=== PATIENT | male | born 1950 | race Caucasian/White ===

== ENCOUNTER 2017-07-04 09:51 | Day surgery (SDC) | payer MEDICARE, MEDICAID ==
[2017-06-30 11:41] LABS: APPEARANCE,URINE SLIGHTLY-CLOUDY; BILIRUBIN,URINE NEGATIVE (NEGATIVE); GLUCOSE, URINE NEGATIVE (NEGATIVE); KETONES,URINE NEGATIVE (NEGATIVE); LEUKOCYTE ESTERASE,URINE NEGATIVE (NEGATIVE); NITRITE,URINE NEGATIVE (NEGATIVE); PROTEIN,URINE NEGATIVE (NEGATIVE); URINE SPECIFIC GRAVITY 1.019; UROBILINOGEN,URINE NEGATIVE mg/dL (<2.0)
[2017-06-30 11:42] LABS: ABSOLUTE BASOPHILS # (AUTO) 0.1 10^3/uL (0.0-0.2); ABSOLUTE EOSINOPHILS # (AUTO) 0.2 10^3/uL (0.0-0.6); ABSOLUTE LYMPHOCYTES (AUTO) 1.4 10^3/uL (0.5-4.7); ABSOLUTE MONOCYTES (AUTO) 0.6 10^3/uL (0.1-1.4); ABSOLUTE NEUT (AUTO) 2.9 10^3/uL (1.7-8.2); BASOPHILS % (AUTO) 1.2 % (0-2); EOSINOPHILS % (AUTO) 4.1 % (0-6); HEMATOCRIT 40.3 % (37.9-51.0); HEMOGLOBIN 13.6 g/dL (13.5-17.0); HGB HCT DIFFERENCE 0.5; LYMPHOCYTES % (AUTO) 27.5 % (13-45); MEAN CORPUSCULAR HEMOGLOBIN 30.2 pg (27.0-33.4); MEAN CORPUSCULAR HGB CONC 33.7 g/dL (32.0-36.0); MEAN CORPUSCULAR VOLUME 90 fl (80-97); MONOCYTES % (AUTO) 11.3 % (3-13); RED BLOOD COUNT 4.49 10^6/uL (4.35-5.55); RED CELL DISTRIBUTION WIDTH 14.8 % (11.5-14.0); SEGMENTED NEUTROPHILS % (AUTO) 55.9 % (42-78); WHITE BLOOD COUNT 5.1 10^3/uL (4.0-10.5)
[2017-06-30 12:01] LABS: PROTHROMBIN TIME 12.8 SEC (11.4-15.4)
[2017-06-30 12:02] LABS: PARTIAL THROMBOPLASTIN TIME 29.2 SEC (23.5-35.8)
--- NOTE | 2017-06-30 17:15 | EKG REPORT ---
SEVERITY:- ABNORMAL ECG - SINUS RHYTHM FIRST DEGREE AV BLOCK : Confirmed by: Karol Clay 30-Jun-2017 17:15:05
[~2017-07-04 09:51] MED LIST: CEFAZOLIN 1 GM/D5W RTU 1 GM/50 ML RTUPB IV PRN; LACTATED RINGERS 1000 ML IV PRN; LIDOCAINE 0.5% INJ-PF (5 MG/ML) 50 ML SDV SUBCUT PRN; TRIAMCINOLONE ACETONIDE INJ 40 MG/1 ML VIAL INJ PRN
[2017-07-04] MEDS ORDERED: LIDOCAINE 1% INJ-PF (10 MG/ML) 30 ML SDV ONE (10:24)
[2017-07-04 10:50] LABS: PROTHROMBIN TIME 13.3 SEC (11.4-15.4)
[2017-07-04 10:51] LABS: PARTIAL THROMBOPLASTIN TIME 32.1 SEC (23.5-35.8)
[2017-07-04] MEDS ORDERED: BUPIVACAINE HCL 0.25% /EPINEPHRINE INJ/PF 30 ML SDV ONE (12:22)
[2017-07-04] MEDS ORDERED: MIDAZOLAM 2 MG/2 ML INJ ONE (12:50)
[2017-07-04] MEDS ORDERED: PROPOFOL INJ 200 MG/20 ML VIAL IV ONE (12:51)
[2017-07-04] MEDS ORDERED: TRIAMCINOLONE ACETONIDE INJ 40 MG/1 ML VIAL ONE ×2 (13:04→13:05)
[2017-07-04] MEDS ORDERED: MEPERIDINE HCL/PF INJ 25 MG/1 ML DISP.SYRIN IV PRN (13:25)
[2017-07-04] MEDS ORDERED: FENTANYL CITRATE INJ/PF 100 MCG/2 ML AMPUL IV PRN ×3 (13:25)
[2017-07-04] MEDS ORDERED: MORPHINE SULFATE 10 MG/ML INJ IV PRN (13:25)
[2017-07-04] MEDS ORDERED: PROMETHAZINE HCL INJ 25 MG/1 ML VIAL IV PRN ×2 (13:25)
[2017-07-04] MEDS ORDERED: DIPHENHYDRAMINE HCL 50 MG/ML VIAL IV PRN (13:25)
[2017-07-04] MEDS ORDERED: OXYCODONE-ACETAMINOPHEN 5-325 MG TABLET PO PRN ×2 (13:25)
--- NOTE | 2017-07-04 15:18 | RADIOLOGY REPORT (SQ) ---
EXAM DESCRIPTION: NO CHG FLUORO; L SPINE 2 VIEWS COMPLETED DATE/TIME: 07/04/2017 2:30 pm REASON FOR STUDY: MINIMALLY INVASIVE LUMBAR DECOMPRESSION ASSISTED W/ FLUORO IN OR G89.4 CHRONIC P AIN SYNDROME Z79.899 OTHER CORRECTION (CURRENT) DRUG THERAPY Z79.01 CORRECTION (CURRENT) USE OF ANTIC OAGULANTS COMPARISON: None. FLUOROSCOPY TIME: 7.3 minutes. 14 images saved to PACS. TECHNIQUE: Intra-operative images acquired during surgical procedure to evaluate progress. NUMBER OF IMAGES: 14 images. LIMITATIONS: None. FINDINGS: Images of the spine acquired during injection therapy. IMPRESSION: IMAGE(S) OBTAINED DURING PROCEDURE. COMMENT: Quality ID 145: Final reports for procedures using fluoroscopy that document radiation exp osure indices, or exposure time and number of fluorographic images (if radiation exposure indices are not available) Please consult full operative report of the attending physician for description of the procedure. TECHNICAL DOCUMENTATION: JOB ID: [id number] [employer]- All Rights Reserved
--- NOTE | 2017-07-04 15:18 | RADIOLOGY REPORT (SQ) ---
EXAM DESCRIPTION: NO CHG FLUORO; L SPINE 2 VIEWS COMPLETED DATE/TIME: 07/04/2017 2:30 pm REASON FOR STUDY: MINIMALLY INVASIVE LUMBAR DECOMPRESSION ASSISTED W/ FLUORO IN OR G89.4 CHRONIC P AIN SYNDROME Z79.899 OTHER USP (CURRENT) DRUG THERAPY Z79.01 USP (CURRENT) USE OF ANTIC OAGULANTS COMPARISON: None. FLUOROSCOPY TIME: 7.3 minutes. 14 images saved to PACS. TECHNIQUE: Intra-operative images acquired during surgical procedure to evaluate progress. NUMBER OF IMAGES: 14 images. LIMITATIONS: None. FINDINGS: Images of the spine acquired during injection therapy. IMPRESSION: IMAGE(S) OBTAINED DURING PROCEDURE. COMMENT: Quality ID 145: Final reports for procedures using fluoroscopy that document radiation exp osure indices, or exposure time and number of fluorographic images (if radiation exposure indices are not available) Please consult full operative report of the attending physician for description of the procedure. TECHNICAL DOCUMENTATION: JOB ID: [id number] [employer]- All Rights Reserved
[2017-07-04 15:37] VITALS: BP 128/78
--- NOTE | 2017-07-04 15:38 | OPERATIVE REPORT E ---
Operative Report NAME: KYRIE COOK : 1950 AGE: 67Y DATE OF SURGERY: 07/04/2017 ROOM: PREOPERATIVE DIAGNOSIS: Lumbar spine stenosis with neurogenic claudication. POSTOPERATIVE DIAGNOSIS: Lumbar spine stenosis with neurogenic claudication. OPERATION: 1. Minimally invasive lumbar decompression at the L4-5 level bilaterally. 2. Lumbar intralaminar epidural steroid injection at L4-5 with 80 mg of Kenalog. SURGEONS: ISMAEL MAURER M.D. and ALIN HAWKINS M.D. FLUIDS: 500 mL of normal saline. ANESTHESIA: PREOPERATIVE ANTIBIOTICS: 1 g of Ancef given. TISSUE REMOVED OR ALTERED: Segment of interspinous ligament and ligamentum flavum removed. None were sent to Pathology. OPERATIVE FINDINGS: Improved epidurographic spread of contrast following decompression. COMPLICATIONS: None. ESTIMATED BLOOD LOSS: Minimal. OPERATIVE INDICATIONS: The patient is a 67-year-old male with a history of lumbar spinal stenosis and neurogenic claudication with good results though short-lived epidural steroid injection. Given symptomatology, the patient was determined to be a good candidate for minimally invasive lumbar decompression surgery. The risks and benefits were discussed with the patient, including but not limited to, bleeding, bruising, infection, injury to nerves, arteries, veins, post dural puncture headache, loss of bowel or bladder function, paralysis, and potentially even . The patient agreed to proceed to the operating room. OPERATIVE DETAIL: The patient was accompanied to the operative suite with by Anesthesia staff. The patient was positioned in the prone position and all pressure points were checked and padded. Standard ASA lines and monitors were applied. A timeout protocol was performed as per [facility] standards. The patient was prepped and draped in sterile fashion using chlorhexidine gluconate solution, an Ioban drape and universal drape. A C-arm was also draped into the field. The L4-5 interspace was marked using AP fluoroscopic guidance and anesthetized with 1% lidocaine and a 1-1/2 inch needle. An 18-gauge Tuohy was advanced under intermittent AP and oblique fluoroscopic guidance and a slight left paramedian approach to the L4-5 interspace. Loss of resistance to normal saline confirmed entry into the epidural space. Confirmation was performed with Isovue 200 contrast solution, total volume 10mL utilized. This demonstrated spread in the posterior epidural space. At this juncture, vertical lines were drawn from in the midline of the spine, and just medial to the vertebral pedicles bilaterally. Incision sites were marked just lateral to the midline at the S1 level. The skin overlying the planned incision sites was anesthetized with 1% lidocaine, and deeper tissues were infiltrated with the same using a 25 gauge 3.5 inch spinal needle. An incision was made with an 11 blade scalpel and subsequently the trocar provided in the MILD kit was advanced using intermittent AP and oblique angulation fluoroscopic guidance to the L4-5 interspace just posterior to the epidural space. A mount was placed around the trocar and a depth gauge set at 15 mm. A bone rongeur was advanced through the trocar after anesthesia with 1% lidocaine was infiltrated through the trocar. The bone rongeur initially was utilized to scrape ligament and some bone from the superior aspect of the inferior lamina. Care was taken to keep rongeur posterior to the epidural space. Subsequently attention was then turned to the inferior aspect of the superior lamina where the procedure was performed in the exact same fashion with excellent removal of soft tissue noted. The tissue sculptor was then inserted through the trocar after bone rongeur was removed and further ligament removal was performed, with some appreciated improvement and spread of the epidurogram. The procedure was performed in the exact same fashion on the opposite side, with again improvement noted in epidural spread. At the end of the procedure the trocars were removed, the skin cleansed and bandages were applied. Additionally 80 mg of Kenalog was injected through the Tuohy needle in the epidural space at L4-5, and the needle was removed without incident. Bandages were placed. The patient tolerated the procedure well and was accompanied to the PACU in stable condition. He will be followed up tomorrow as an outpatient. DICTATING PHYSICIAN: ISMAEL MAURER M.D. [id number] PHY#: [id number] ID: [id number] JOB#: [id number] ACCT: [id number] cc:ISMAEL MUARER M.D. > MTDD
== END 2017-07-04 15:41 | disposition home or self-care (01) ==
LOC: OROUT 09:51
PROVIDERS: ATTEND Pain Medicine Interventional Pain Medicine
PROC: 00NY0ZZ Release Lumbar Spinal Cord, Open Approach (ICD-10-PCS; principal; 2017-07-04 12:00)
DX: M48.06 Spinal stenosis, lumbar region (principal); G89.4 Chronic pain syndrome; I10 Essential (primary) hypertension; G47.33 Obstructive sleep apnea (adult) (pediatric); I25.2 Old myocardial infarction; M19.90 Unspecified osteoarthritis, unspecified site; E11.9 Type 2 diabetes mellitus without complications; F17.210 Nicotine dependence, cigarettes, uncomplicated; E78.5 Hyperlipidemia, unspecified; F41.9 Anxiety disorder, unspecified; Z79.01 Long term (current) use of anticoagulants; Z79.899 Other long term (current) drug therapy; Z79.84 Long term (current) use of oral hypoglycemic drugs
CPT/HCPCS: 93005; 36415 ×2; 82962; 85025; 85610 ×2; 85730 ×2; 81001; 72100; 93010; 0275T; Q9966; J2250; J3490 ×3; J0690; J2704; 630

== ENCOUNTER → 2018-01-22 | Outpatient (CLI) | payer MEDICAID, MEDICARE ==
--- NOTE | 2018-01-22 13:37 | RADIOLOGY REPORT (SQ) ---
EXAM DESCRIPTION: U/S SCROTUM W/O DOPPLER COMPLETED DATE/TIME: 01/22/2018 12:17 pm REASON FOR STUDY: LEFT TESTICULAR PAIN (N50.812) N50.812 LEFT TESTICULAR PAIN COMPARISON: None. TECHNIQUE: Static and realtime hendrickson scale imaging of the scrotum and testes. Selected color Doppler and spectral images recorded to document blood flow. LIMITATIONS: None. FINDINGS: RIGHT: TESTICLE: Normal size, 4.4 x 3.1 x 2.3 cm in size. Normal echotexture. Normal blood flow. No mass. EPIDIDYMIS: Normal, 5 mm right epididymal cyst. HYDROCELE OR VARICOCELE: No. HERNIA OR EXTRA-TESTICULAR MASS: No. OTHER: No other significant finding. LEFT: TESTICLE: Normal size, 4.8 x 2.9 x 2.7 cm in size. Normal echotexture. Normal blood flow. No mass. EPIDIDYMIS: Normal. HYDROCELE OR VARICOCELE: Large hydrocele left hemiscrotum at least 11 x 7 cm in size. HERNIA OR EXTRA-TESTICULAR MASS: No. OTHER: No other significant finding. IMPRESSION: No ultrasound evidence of testicular torsion. No testicular primary nodules. Large left hydrocele in the hemiscrotum TECHNICAL DOCUMENTATION: JOB ID: [id number] [employer]- All Rights Reserved Reading location - IP/workstation name: [email or web address]
== END ==
LOC: RAD 10:13
PROVIDERS: ATTEND Physician Assistant
DX: N50.812 Left testicular pain (principal); N43.3 Hydrocele, unspecified
CPT/HCPCS: 76870

== ENCOUNTER 2019-07-02 05:41 | Day surgery (SDC) | payer MEDICARE, MEDICAID ==
[2019-06-25 09:42] LABS: APPEARANCE,URINE CLEAR; BILIRUBIN,URINE NEGATIVE (NEGATIVE); COLOR,URINE YELLOW; GLUCOSE, URINE NEGATIVE (NEGATIVE); KETONES,URINE NEGATIVE (NEGATIVE); LEUKOCYTE ESTERASE,URINE NEGATIVE (NEGATIVE); NITRITE,URINE NEGATIVE (NEGATIVE); PROTEIN,URINE NEGATIVE (NEGATIVE); URINE SPECIFIC GRAVITY 1.023; UROBILINOGEN,URINE NEGATIVE mg/dL (<2.0)
[2019-06-25 09:49] LABS: HEMATOCRIT 37.7 % (37.9-51.0); HEMOGLOBIN 12.8 g/dL (13.5-17.0); MEAN CORPUSCULAR HEMOGLOBIN 29.9 pg (27.0-33.4); MEAN CORPUSCULAR HGB CONC 33.9 g/dL (32.0-36.0); MEAN CORPUSCULAR VOLUME 88 fl (80-97); PLATELET COUNT 163 10^3/uL (150-450); RED BLOOD COUNT 4.28 10^6/uL (4.35-5.55); RED CELL DISTRIBUTION WIDTH 15.3 % (11.5-14.0); WHITE BLOOD COUNT 5.1 10^3/uL (4.0-10.5)
[2019-06-25 09:57] LABS: INTERNATIONAL RATION (INR) 1.03; PROTHROMBIN TIME 13.5 SEC (11.4-15.4)
[2019-06-25 09:58] LABS: PARTIAL THROMBOPLASTIN TIME 30.8 SEC (23.5-35.8)
--- NOTE | 2019-06-25 10:11 | RADIOLOGY REPORT (SQ) ---
EXAM DESCRIPTION: CHEST PA/LATERAL COMPLETED DATE/TIME: 06/25/2019 9:39 am REASON FOR STUDY: PRE-OP COMPARISON: 08/20/2015 EXAM PARAMETERS: NUMBER OF VIEWS: two views TECHNIQUE: Digital Frontal and Lateral radiographic views of the chest acquired. RADIATION DOSE: NA LIMITATIONS: none FINDINGS: LUNGS AND PLEURA: No opacities, masses or pneumothorax. No pleural effusion. MEDIASTINUM AND HILAR STRUCTURES: No masses or contour abnormalities. HEART AND VASCULAR STRUCTURES: Heart normal size. No evidence for failure. BONES: No acute findings. HARDWARE: Sternotomy wires are in place. OTHER: No other significant finding. IMPRESSION: NO SIGNIFICANT RADIOGRAPHIC FINDING IN THE CHEST. TECHNICAL DOCUMENTATION: JOB ID: [id number] [employer]- All Rights Reserved Reading location - IP/workstation name: [email or web address]
--- NOTE | 2019-06-25 20:55 | EKG REPORT ---
SEVERITY:- ABNORMAL ECG - SINUS RHYTHM VENTRICULAR PREMATURE COMPLEX FIRST DEGREE AV BLOCK : Confirmed by: Mary Luna MD 25-Jun-2019 20:54:02
[~2019-07-02 05:41] MED LIST changes: +CEFAZOLIN 1 GM/D5W RTU 1 GM/50 ML RTUPB IV ONE; -TRIAMCINOLONE ACETONIDE INJ 40 MG/1 ML VIAL INJ PRN
[2019-07-02] MEDS ORDERED: METOPROLOL SUCCINATE 50 MG TAB.SR.24H PO ONE ×2 (06:29→06:36)
[2019-07-02] MEDS ORDERED: FENTANYL CITRATE INJ/PF 100 MCG/2 ML AMPUL ONE ×2 (06:39→09:55)
[2019-07-02] MEDS ORDERED: MIDAZOLAM 2 MG/2 ML INJ ONE (06:40)
[2019-07-02] MEDS ORDERED: PROPOFOL INJ 200 MG/20 ML VIAL IV ONE (06:40)
[2019-07-02] MEDS ORDERED: LIDOCAINE 2% INJ (20 MG/ML) 20 ML MDV ONE (06:42)
[2019-07-02] MEDS ORDERED: LIDOCAINE 1% INJ-PF (10 MG/ML) 30 ML SDV ONE (07:44)
[2019-07-02] MEDS ORDERED: SODIUM BICARBONATE 4.2% INJ (2.5 MEQ/5 ML) VIAL ONE (07:44)
[2019-07-02] MEDS ORDERED: BUPIVACAINE HCL 0.25% /EPINEPHRINE INJ/PF 30 ML SDV ONE (07:44)
[2019-07-02] MEDS ORDERED: BUPIVACAINE HCL 0.5%-EPI 1:200000 INJ/PF 30 ML VIAL INJ ONE ×2 (08:15)
[2019-07-02] MEDS ORDERED: MEPERIDINE HCL/PF INJ 25 MG/1 ML DISP.SYRIN IV PRN (08:37)
[2019-07-02] MEDS ORDERED: DIPHENHYDRAMINE HCL 50 MG/ML VIAL IV PRN (08:37)
[2019-07-02] MEDS ORDERED: PROMETHAZINE HCL INJ 25 MG/1 ML VIAL IV PRN ×2 (08:37)
[2019-07-02] MEDS ORDERED: OXYCODONE-ACETAMINOPHEN 5-325 MG TABLET PO PRN ×2 (08:37)
[2019-07-02] MEDS ORDERED: FENTANYL CITRATE INJ/PF 100 MCG/2 ML AMPUL IV PRN ×2 (08:37)
[2019-07-02] MEDS ORDERED: CEFAZOLIN INJ 1 GM VIAL ONE (09:24)
--- NOTE | 2019-07-02 09:47 | Operative Report ---
Operative Report DATE OF SURGERY: 07/02/19 PREOPERATIVE DIAGNOSIS: Lumbar radiculopathy POSTOPERATIVE DIAGNOSIS: Lumbar radiculopathy OPERATION: Implantation permanent spinal cord stimulator with dual octrodes and implantable pulse generator SURGEON: ISMAEL ALFARO 1ST PROFESSOR OF APOLOGETICS: RENATO HAWKINS ANESTHESIA: Moderate Sedation COMPLICATIONS: None ESTIMATED BLOOD LOSS: 15 mL INTRAOPERATIVE FINDINGS: Octrode Leads placed from the middle of T8 to the top of T10 vertebral bodies PROCEDURE: Date of Surgery: 07/02/2019 Preoperative Diagnosis: Lumbar Radiculopathy Postoperative Diagnosis:Same Procedure: SCS Electrode Placement with Impulse Generator Surgeon: Ismael Alfaro MD Staffing Recruiter: Renato Hawkins MD Anesthesia: MAC Complications: None Procedure Detail: After obtaining informed consent and advising the patient of the risks and benefits, including serious neurological injury, bleeding and infection, allergic reaction and , the patient was taken to the operating room. After discussion with the patient, a suitable site was marked for the impulse generator pocket. The patient was then placed comfortably in the prone position. Comfort was assessed visually and verbally. The patient was then prepped with chlorhexidine with a suitable drying time prior to drapping. The patient was evaluated under fluoroscopy in the AP view. An adequate space was found at T12/L1 and a midline incision site was marked to allow needle entry. The skin overlying both the midline and IPG sites were anesthetized with 1% lidocaine with bicarbonate, followed by bupivacaine 0.25% with epinephrine. Beginning at the midline incision, Sharp and blunt dissection were performed down to the underlying fascia. Using a left paramedian approach, a 14 gauge Tuohy needle was placed in the epidural space at T12/L1 using a loss or resistance to saline technique. A second needle using a right paramedian approach was placed in the epidural space in the same manner. An electrode was inserted through each needle and advanced under serial fluoroscopy views to the middle of the T8 vertebral body on the right and left. After placement, lateral imaging was obtained for appropriate posterior position in the epidural space. The leads were then tested and appropriate stimulation was found after discussion with the patient. The leads were then secured using 0-Mersiline pursetrings with anchors in place. The anchors were then sututred in place. The needles were remove sequentially under fluoroscopic guidance. The anchors and pursestrings were secured. While lead positioning was occurring, Dr. Hawkins was assisting creating the pocket for the pulse generator. As soon as the pocket was made, proper hemost asis was confirmed. The skin between the midline and IPG pocket was then anesthetized with 1% lidocaine. A tunneling tool was then utilized to bring the midline electrodes to the IPG pocket. Both sites were then inspected with appropriate hemostasis. The wires were easily placed in the midline, stitched to the pocket, connected to the pulse generator which was then tested with appropriate communication. All connections were then secured and confirmed. The generator was connected to the electrodes. All hex nuts were secured. The generator was placed in the pocket and impedance was tested and was felt to be satisfactory. Good connectivity with the new generator was obtained. The wounds were then copiously irrigated with Betadine containing irrigation solution. The sites were then closed with interrupted vertical mattress sutures with 2-0 Polysorb. The skin came together nicely. The region was cleansed again followed by placement of dermabond tape and skin glue. When this was dry, porter table tegaderm sponge dressings were placed. The patient was then taken back to PACU for postoperative care and monitoring. Patient will be discharged home and will be seen in postop in 24 hours
--- NOTE | 2019-07-02 09:55 | RADIOLOGY REPORT (SQ) ---
EXAM DESCRIPTION: THORACOLUMBAR SPINE AP/LAT; NO CHG FLUORO COMPLETED DATE/TIME: 07/02/2019 9:43 am REASON FOR STUDY: SPINAL STIMULATOR PLCMT ASST WITH FLUORO IN OR M54.16 RADICULOPATHY, LUMBAR REGIO N G89.4 CHRONIC PAIN SYNDROME Z79.899 OTHER CORRECTION (CURRENT) DRUG THERAPY COMPARISON: None. FLUOROSCOPY TIME: 6.4 minutes Spot images saved to PACS. TECHNIQUE: Intra-operative images acquired during surgical procedure to evaluate progress. NUMBER OF IMAGES: 11 LIMITATIONS: None. FINDINGS: Fluoroscopy was provided for intraoperative procedure. Please refer to the operative repo rt for further discussion. IMPRESSION: IMAGE(S) OBTAINED DURING PROCEDURE. COMMENT: Quality ID 145: Final reports for procedures using fluoroscopy that document radiation exp osure indices, or exposure time and number of fluorographic images (if radiation exposure indices are not available) Please consult full operative report of the attending physician for description of the procedure. TECHNICAL DOCUMENTATION: JOB ID: [id number] [employer]- All Rights Reserved Reading location - IP/workstation name: [email or web address]
--- NOTE | 2019-07-02 09:55 | RADIOLOGY REPORT (SQ) ---
EXAM DESCRIPTION: THORACOLUMBAR SPINE AP/LAT; NO CHG FLUORO COMPLETED DATE/TIME: 07/02/2019 9:43 am REASON FOR STUDY: SPINAL STIMULATOR PLCMT ASST WITH FLUORO IN OR M54.16 RADICULOPATHY, LUMBAR REGIO N G89.4 CHRONIC PAIN SYNDROME Z79.899 OTHER SENIOR LIVING (CURRENT) DRUG THERAPY COMPARISON: None. FLUOROSCOPY TIME: 6.4 minutes Spot images saved to PACS. TECHNIQUE: Intra-operative images acquired during surgical procedure to evaluate progress. NUMBER OF IMAGES: 11 LIMITATIONS: None. FINDINGS: Fluoroscopy was provided for intraoperative procedure. Please refer to the operative repo rt for further discussion. IMPRESSION: IMAGE(S) OBTAINED DURING PROCEDURE. COMMENT: Quality ID 145: Final reports for procedures using fluoroscopy that document radiation exp osure indices, or exposure time and number of fluorographic images (if radiation exposure indices are not available) Please consult full operative report of the attending physician for description of the procedure. TECHNICAL DOCUMENTATION: JOB ID: [id number] [employer]- All Rights Reserved Reading location - IP/workstation name: [email or web address]
[2019-07-02] MEDS: FENTANYL CITRATE INJ/PF 100 MCG/2 ML AMPUL IV PRN ×2 (10:01→10:15)
[2019-07-02] MEDS ORDERED: OXYCODONE-ACETAMINOPHEN 5-325 MG TABLET ONE (11:01)
[2019-07-02 13:01] VITALS: BP 130/72
== END 2019-07-02 11:50 | disposition home or self-care (01) ==
LOC: OROUT 05:41
PROVIDERS: ATTEND Pain Medicine Interventional Pain Medicine
DX: M54.16 Radiculopathy, lumbar region (principal); G89.4 Chronic pain syndrome; E78.5 Hyperlipidemia, unspecified; I10 Essential (primary) hypertension; I25.2 Old myocardial infarction; E11.9 Type 2 diabetes mellitus without complications; F17.210 Nicotine dependence, cigarettes, uncomplicated; G47.33 Obstructive sleep apnea (adult) (pediatric); Z79.899 Other long term (current) drug therapy; Z79.01 Long term (current) use of anticoagulants; Z79.82 Long term (current) use of aspirin; Z79.84 Long term (current) use of oral hypoglycemic drugs
CPT/HCPCS: 93005; 36415; 82962; 85027; 85610; 85730; 81001; 71046; 72080; 93010; 00300; 63685; 63650; C1778; C1820 ×2; J2250; J3490 ×4; J0690 ×2; J3010; A9270 ×2; J2704; 300

== ENCOUNTER → 2019-09-09 | Outpatient (CLI) | payer MEDICARE, MEDICAID ==
--- NOTE | 2019-09-09 12:29 | RADIOLOGY REPORT (SQ) ---
EXAM DESCRIPTION: FOOT LEFT COMPLETE COMPLETED DATE/TIME: 09/09/2019 10:24 am REASON FOR STUDY: PAIN IN LEFT FOOT M79.672 PAIN IN LEFT FOOT COMPARISON: None. NUMBER OF VIEWS: Three views. TECHNIQUE: AP, lateral and oblique radiographic images acquired of the left foot. LIMITATIONS: None. FINDINGS: MINERALIZATION: Normal. BONES: No acute fracture or dislocation. No worrisome bone lesions. Small plantar calcaneal spur. Multipartite medial sesamoid bone 1st metatarsophalangeal joint JOINTS: No effusions. SOFT TISSUES: Mild forefoot soft tissue swelling. No foreign body. OTHER: Calcifications/ossification lateral to the cuboid bone from calcific tendinopathy peroneal ten dons IMPRESSION: Small plantar calcaneal spur. Calcification/ossification lateral to the cuboid bone, likely an os perineum. Peroneal tendon calcif ication could mimic this appearance Forefoot soft tissue swelling TECHNICAL DOCUMENTATION: JOB ID: [id number] [employer]- All Rights Reserved Reading location - IP/workstation name: [email or web address]
== END ==
LOC: OD 10:13
PROVIDERS: ATTEND Nurse Practitioner Family
DX: M79.672 Pain in left foot (principal)